=== PATIENT | female | born 1960 | race Caucasian/White ===

== ENCOUNTER 2024-11-04 11:46 | Emergency (ER) | payer BC, SELFPAY ==
[2024-11-04 11:48] VITALS: BMI 31.0
[2024-11-04 11:57] VITALS: BP 163/88; PULSE 107; RESP 18; TEMP 36.9; O2SAT 90
--- NOTE | 2024-11-04 12:05 | XR_ITS ---
Examination: PA lateral chest 2 views Technique: Upright PA lateral chest 2 views Exam date and time: November 04, 2024 1216 hrs. Comparison November 17, 2018 Indications: Coughing fever beginning 2 weeks ago Findings: Suspicious for early bilateral perihilar pneumonia Normal heart size Mild hyperexpansion Impression: Suspicious for early bilateral perihilar pneumonia including mildly prominent hilar regions Recommend 1 month follow-up PA chest to exclude hilar lymphadenopathy
--- NOTE | 2024-11-04 12:08 | PD.EDWEAK ---
ED Weakness RME/HPI General Chief complaint: Weakness Stated complaint: HIGH BLOOD PRESSURE, WEAKNESS, FEELING FAINT Time Seen by Provider: 11/04/24 12:21 Source: patient Arrival date/time: 11/04/24 11:46 63-year-old female with no known medical history presents to the emergency room with a chief complaint of cough, congestion, weakness, shortness of breath, and an elevated high blood pressure reading this morning. Mode of arrival: ambulatory Limitations: no limitations Related Data Home Medications ?Medication ?Instructions ?Recorded ?Confirmed cetirizine 10 mg tablet (Zyrtec) 10 mg PO QDAY 10/24/19 10/24/19 fluticasone propionate 50 2 spray intranasal QDAY 10/24/19 10/24/19 mcg/actuation nasal spray,suspension (Flonase Allergy Relief) Previous Rx's ?Medication ?Instructions ?Recorded albuterol sulfate 90 mcg/actuation 2 inh inhalation Q6H PRN shortness 11/04/24 breath activated powder inhaler of breath or wheezing #1 ea amoxicillin 875 mg-potassium 1 tab PO BID 7 days #14 tabs 11/04/24 clavulanate 125 mg tablet Allergies Allergy/AdvReac Type Severity Reaction Status Date / Time dexlansoprazole (From Allergy Intermediate Chills Verified 11/04/24 11:48 Dexilant) oseltamivir (From Tamiflu) Allergy Intermediate Chills Verified 11/04/24 11:48 Review of Systems Review of Systems Systems Reviewed: All systems reviewed, normal except as documented Constitutional Constitutional: Reports system reviewed and no additional complaints, except as documented, Denies fatigue, Reports fever(s), Reports headache(s) and Reports weakness Eyes Eyes: Reports system reviewed and no additional complaints, except as documented, Denies blurry vision and Denies change in vision ENT Ears, Nose, Mouth, and Throat: Reports system reviewed and no additional complaints, except as documented, Denies otalgia, Reports headache(s), Denies nasal congestion, Denies throat swelling and Denies vertigo Cardiovascular Cardiovascular: Reports system reviewed and no additional complaints, except as documented, Denies chest pain, Denies dyspnea and Denies dyspnea on exertion Respiratory Respiratory: Reports system reviewed and no additional complaints, except as documented, Reports chest congestion, Reports cough, Denies dyspnea, Denies dyspnea on exertion and Reports wheezing Gastrointestinal Gastrointestinal: Reports system reviewed and no additional complaints, except as documented, Denies abdominal pain, Denies cramping, Denies nausea and Denies vomiting Genitourinary Genitourinary: Reports system reviewed and no additional complaints, except as documented Musculoskeletal Musculoskeletal: Reports system reviewed and no additional complaints, except as documented and Denies back pain Integumentary/Breasts Skin/Breast: Reports system reviewed and no additional complaints, except as documented and Denies wounds Neurologic Neurologic: Reports system reviewed and no additional complaints, except as documented, Denies confusion, Reports headache(s), Denies lack of coordination, Denies vertigo and Reports weakness Psychiatric Psychiatric: Reports system reviewed and no additional complaints, except as documented, Denies anxiety, Denies confusion, Denies depression, Denies paranoia, Denies suicidal ideation and Denies tactile hallucinations Endocrine Endocrine: Reports system reviewed and no additional complaints, except as documented and Denies fatigue Hematologic/Lymphatic Hematologic/Lymphatic: Reports system reviewed and no additional complaints, except as documented and Denies lymphadenopathy Allergic/Immunologic Allergic/Immunologic: Reports system reviewed and no additional complaints, except as documented, Denies throat swelling, Denies urticaria and Reports wheezing Past Medical History Social History SMOKING STATUS: Never smoker ED Exam General Limitations: Present no limitations General appearance: Present alert and in no apparent distress Head Head exam: Present atraumatic Eye Eye exam: Present normal appearance, PERRL and EOMI ENT ENT exam: Present normal exam, normal oropharynx and mucous membranes moist Neck Neck exam: Present normal inspection, full ROM and trachea midline Chest Chest inspection: Present normal inspection and symmetric chest wall rise Respiratory Respiratory exam: Present normal lung sounds bilaterally and wheezes; Absent respiratory distress, stridor, accessory muscle use or prolonged expiratory phase Expanded Respiratory Exam Location: Right: wheezes, Upper: wheezes and Lower: wheezes Cardiovascular Cardiovascular exam: Present regular rate, normal rhythm and normal heart sounds; Absent tachycardia Abdominal Exam Abdominal exam: Present soft and normal bowel sounds Extremities Exam Extremities exam: Present normal inspection and full ROM Back Exam Back exam: Present normal inspection and full ROM Neurological Exam Neurological exam: Present alert, oriented X3 and CN II-XII intact Psychiatric Psychiatric exam: Present normal affect and normal mood Skin Skin exam: Present warm, dry, intact and normal color Course Quality Measures none Orders Category Date Time Status Bedside COVID-19 Antigen Test NOW Care 11/04/24 12:05 Active Bedside Influenza A&B Antigen Test NOW Care 11/04/24 12:05 Completed XR chest 2V Stat Exams 11/04/24 12:05 Completed CBC Stat Lab 11/04/24 12:33 Completed CMP [Comprehensive Metabolic Panel] Stat Lab 11/04/24 12:33 Completed Albuterol/Ipratr Rt Aliya [Duoneb Rt Aliya] Med 11/04/24 12:04 Discontinued 6 ml INH X1 ONE Dexamethasone Inj [Decadron Inj] Med 11/04/24 12:04 Discontinued 10 mg PO X1 ONE Vital Signs Vital signs: Vital Signs Temperature 98.4 F 11/04/24 11:57 Pulse Rate 107 H 11/04/24 11:57 Respiratory Rate 18 11/04/24 11:57 Blood Pressure 163/88 H 11/04/24 11:57 Pulse Oximetry (%) 90 L 11/04/24 11:57 Oxygen Delivery Method Room Air 11/04/24 11:57 O2 saturation 96% within normal limits Weakness MDM Narrative MDM Narrative:: 63-year-old female with no known medical history presents to the emergency room with a chief complaint of cough, congestion, weakness, shortness of breath, and an elevated high blood pressure reading this morning. Patient is hemodynamically stable and in no apparent distress. Patient has wheezing to the right upper and lower lobes. Patient is not tachypneic and is afebrile. Patient's O2 saturation is 96% on room air after her breathing treatment and steroids. Chest x-ray was completed and shows early bilateral pneumonia COVID-19 and influenza test were both negative Patient was discharged and educated to follow-up with primary care provider and return to the emergency room for any evidence of worsening signs or symptoms Patient data External records reviewed:: [facility] previous records Clinical information provided by:: patient Social determinants that could affect healthcare access:: none Patient has the following chronic illnesses:: No chronic illness How is presenting disease/condition affected by chronic disease/condition?: no chronic disease Evaluation data The following diagnostics were reviewed and interpreted by me:: lab results and radiology exam(s) Lab and/or radiology exams considered but not ordered:: Labs and radiology exams considered and ordered Interpretation Summary: Chest [id number]: Suspicious for early bilateral perihilar pneumonia Normal heart size Mild hyperexpansion Impression: Suspicious for early bilateral perihilar pneumonia including mildly prominent hilar regions Recommend 1 month follow-up PA chest to exclude hilar lymphadenopathy Medications / Prescriptions Medications or Prescriptions considered but not ordered:: Medication given Medication administrations:: Medication Administration History Discontinued Medications Albuterol/Ipratropium (Albuterol/Ipratropium (Duoneb) Rt Aliya 3 Ml Nebu) 6 ml INH X1 ONE Stop: 11/04/24 12:05 Last Admin: 11/04/24 12:24 Dose: 6 ml Documented By: LO Dexamethasone Sodium Phosphate (Dexamethasone Sod Phos Inj 10 Mg/Ml Vial) 10 mg PO X1 ONE Stop: 11/04/24 12:05 Last Admin: 11/04/24 12:47 Dose: 10 mg Documented By: ER Medication given Consultations Consultation(s) initiated? (list below): No Diagnosis Weakness Differential Diagnosis: other (Community-acquired pneumonia/influenza/COVID-19/upper respiratory infection) Most likely diagnosis given after review of the tests above:: Community-acquired pneumonia Admission Indicated Admission indicated?: not indicated Admission Request Was there a request for admission?: No Disposition Plan Disposition Plan: Discharge Discharge Attestation Discharge Attestation: The patient and all family members were given an opportunity to ask questions and understood the discharge instructions. Discharge instructions specifically effects, indications for sooner follow up or return to the emergency department, and the expected course of current diagnosis. Patient condition: Stable Discharge Plan Plan Patient Disposition: HOME (Self Care) Disposition Comment: Stable Prescriptions/Referrals Prescriptions/Med Rec: New amoxicillin-pot clavulanate 875-125 mg tablet 1 tab PO BID 7 Days Qty: 14 0RF albuterol sulfate 90 mcg/actuation aerosol powdr breath activated 2 inh inhalation Q6H PRN (Reason: shortness of breath or wheezing) Qty: 1 0RF No Action cetirizine [Zyrtec] 10 mg tablet 10 mg PO QDAY fluticasone propionate [Flonase Allergy Relief] 50 mcg/actuation spray,suspension 2 spray INTRANASAL QDAY Problem List Clinical Impression: Community acquired pneumonia Patient/Caregiver Discharge Instructions Education Materials: ED Pneumonia (Adult) Additional Instructions: Please follow-up with your primary care provider in the next 24 to 48 hours. Your chest x-ray showed community-acquired pneumonia. 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 For any evidence of worsening signs or symptoms return to the emergency room immediately Print Language: Romansh Stand Alone Forms: [place] Info., Patient Portal Info Letter PA/HEALTH CARE MANAGER Supervising Physician PA/HEALTH CARE MANAGER Supervising Physician: Dr Salinas
[2024-11-04] MEDS: ALBUTEROL/IPRATROPIUM (Duoneb) RT SOL 3 ML NEBU 6 ML INH (12:24)
[2024-11-04 12:28] VITALS: PULSE 98; RESP 18; O2SAT 98
[2024-11-04] MEDS: DEXAMETHASONE SOD PHOS INJ 10 MG/ML VIAL PO (12:47)
[2024-11-04 12:56] LABS: Basophils # (Auto) 0.1 Thou/mm3 (0.0-0.2); Basophils % (Auto) 1 % (0-2.5); Eosinophils # (Auto) 0.3 Thou/mm3 (0.0-0.5); Eosinophils % (Auto) 3 % (0-10); Hematocrit 44.3 % (36.0-46.0); Hemoglobin 15.5 g/dL (12.0-16.0); Immature Granulocytes % (Auto) 0 % (0-0); Immature Granulocytes Auto 0.04 Thou/mm3 (0.00-0.00); Lymphocytes # (Auto) 2.2 Thou/mm3 (1.0-4.8); Lymphocytes % (Auto) 21 % (10-50); Mean Corpuscular Hemoglobin 29.6 pg (25.0-35.0); Mean Corpuscular Volume 85 fL (80-100); Monocytes # (Auto) 0.7 Thou/mm3 (0.0-0.8); Monocytes % (Auto) 7 % (0-12); Neutrophils # (Auto) 7.1 Thou/mm3 (1.8-7.7); Neutrophils % (Auto) 68 % (37-80); Nucleated Red Blood Cell % 0 /100 WBC (0); Platelet Count 318 Thou/mm3 (140-440); RDW Standard Deviation 38.4 fL (36.4-46.3); Red Blood Count 5.23 Miln/mm3 (4.00-5.20); White Blood Count 10.5 Thou/mm3 (3.6-11.0)
[2024-11-04 13:18] LABS: Alanine Aminotransferase 44 U/L (10-49); Albumin, Serum 4.6 gm/dL (3.4-4.8); Albumin/Globulin Ratio 1.5 (1.2-2.2); Alkaline Phosphatase 140 U/L (46-116); Anion Gap 12 (7-16); Aspartate Amino Transferase 38 U/L (0-34); BUN/Creatinine Ratio 15 Ratio (12-20); Bilirubin,Total 0.3 mg/dL (0.3-1.2); Blood Urea Nitrogen 15 mg/dL (9-23); Calcium 9.5 mg/dL (8.3-10.6); Calcium (Corrected) 9.5 mg/dL (8.5-10.1); Carbon Dioxide 22.8 mMol/L (20.0-31.0); Chloride 107 mMol/L (98-107); Estimated Creatinine Clearance 60.5 mL/min (>60); Glucose 104 mg/dL (74-106); Osmolality,Calculated 283 (275-295); Potassium 3.8 mMol/L (3.4-5.1); Sodium 142 mMol/L (136-145); Total Protein 7.6 gm/dL (5.7-8.2); eGFR > 60 See Note
[2024-11-04 13:39] VITALS: BP 123/82; PULSE 106; RESP 18; TEMP 36.7; O2SAT 96
== END 2024-11-04 13:41 | disposition home or self-care (01) ==
LOC: SERX 14:32
PROVIDERS: Nurse Practitioner Family; Emergency Provider Emergency Medicine
DX: J18.9 Pneumonia, unspecified organism (principal)
CPT/HCPCS: 36415; 71046; 80053; 85025; 87400; 87811; 94640; 99283; A9270; J1100

== ENCOUNTER 2024-12-24 11:13 | Emergency (ER) | payer BC, SELFPAY ==
[2024-12-24 11:14] VITALS: BMI 30.9
[2024-12-24 11:25] VITALS: BP 166/81; PULSE 112; RESP 18; TEMP 36.8; O2SAT 96
--- NOTE | 2024-12-24 11:31 | EKG_ITS ---
[facility] (Formerly [facility])[3] Test Date: 2024-12-24 Pat Name: KRISTIN VILLARREAL Department: Room: - Gender: Female Bait Tier: : 1960 Requested By: Jaylen Lanier Order Number: [id number] Reading MD: Jaylen Lanier Measurements Intervals [place] Rate: 88 P: 52 VA: 145 QRS: 39 QRSD: 85 T: 39 QT: 349 QTc: 424 Interpretive Statements SINUS RHYTHM WITH SINUS ARRHYTHMIA LOW QRS VOLTAGE IN PRECORDIAL LEADS [QRS DEFLECTION < 1.0 mV IN CHEST LEADS] No previous ECG available for comparison /store/[email or web address]/[id number]
--- NOTE | 2024-12-24 11:31 | XR_ITS ---
Examination: PA lateral chest 2 views TECHNIQUE: Upright PA lateral chest 2 views Exam date and time: December 24, 2024 1212 hours Comparison November 04, 2024 INDICATIONS: Chest pain with hypertension today. FINDINGS: Normal heart size Mild hyperexpansion No lobar pneumonia Mild accentuation of basilar bronchovascular markings IMPRESSION: Mild basilar bronchitis pattern
--- NOTE | 2024-12-24 11:32 | EDRME_ITS ---
Rapid Medical Screening Exam E Arrival date/time: 12/24/24 11:13 64-year-old female with no known medical history presents to the emergency room with a chief complaint of chest tightness, palpitations, x 1 month and left- sided arm tingling x 1 day. I have greeted and performed a focused initial assessment of this patient. A comprehensive ED assessment and evaluation of the patient, analysis of all test results, and completion of the medical decision making process will be conducted by additional ED providers. Chief Complaint: General Adult/Misc Complain Vital signs: Vital Signs Temperature 98.3 F 12/24/24 11:25 Pulse Rate 112 H 12/24/24 11:25 Respiratory Rate 18 12/24/24 11:25 Blood Pressure 166/81 H 12/24/24 11:25 Pulse Oximetry (%) 96 12/24/24 11:25 Oxygen Delivery Method Room Air 12/24/24 11:25 Vital signs reviewed by provider: Yes
[2024-12-24 12:08] LABS: Basophils # (Auto) 0.1 Thou/mm3 (0.0-0.2); Basophils % (Auto) 1 % (0-2.5); Eosinophils # (Auto) 0.2 Thou/mm3 (0.0-0.5); Eosinophils % (Auto) 2 % (0-10); Hematocrit 43.6 % (36.0-46.0); Hemoglobin 14.9 g/dL (12.0-16.0); Immature Granulocytes % (Auto) 0 % (0-0); Immature Granulocytes Auto 0.03 Thou/mm3 (0.00-0.00); Lymphocytes # (Auto) 2.1 Thou/mm3 (1.0-4.8); Lymphocytes % (Auto) 23 % (10-50); Mean Corpuscular HGB Conc 34.2 g/dl (31.0-37.0); Mean Corpuscular Hemoglobin 29.5 pg (25.0-35.0); Mean Corpuscular Volume 86 fL (80-100); Monocytes # (Auto) 0.6 Thou/mm3 (0.0-0.8); Monocytes % (Auto) 6 % (0-12); Neutrophils # (Auto) 6.1 Thou/mm3 (1.8-7.7); Neutrophils % (Auto) 68 % (37-80); Nucleated Red Blood Cell % 0 /100 WBC (0); Platelet Count 291 Thou/mm3 (140-440); RDW Standard Deviation 39.5 fL (36.4-46.3); Red Blood Count 5.05 Miln/mm3 (4.00-5.20)
[2024-12-24 12:24] LABS: Partial Thromboplastin Time 28.4 Seconds (22.0-36.0); Prothrombin Time 11.1 Seconds (9.0-12.2)
[2024-12-24 12:25] LABS: B-Type Natriuretic Peptide 27 pg/mL (0-100)
[2024-12-24 12:30] LABS: Alanine Aminotransferase 34 U/L (10-49); Albumin, Serum 4.4 gm/dL (3.4-4.8); Albumin/Globulin Ratio 1.5 (1.2-2.2); Alkaline Phosphatase 121 U/L (46-116); Anion Gap 10 (7-16); Aspartate Amino Transferase 33 U/L (0-34); BUN/Creatinine Ratio 12 Ratio (12-20); Bilirubin,Total 0.6 mg/dL (0.3-1.2); Blood Urea Nitrogen 12 mg/dL (9-23); Calcium 9.4 mg/dL (8.3-10.6); Calcium (Corrected) 9.4 mg/dL (8.5-10.1); Chloride 107 mMol/L (98-107); Estimated Creatinine Clearance 59.5 mL/min (>60); Glucose 111 mg/dL (74-106); Osmolality,Calculated 281 (275-295); Potassium 4.1 mMol/L (3.4-5.1); Sodium 141 mMol/L (136-145); Total Protein 7.4 gm/dL (5.7-8.2); Troponin I < 0.002 ng/mL (0.0-0.045); eGFR > 60 See Note
--- NOTE | 2024-12-24 12:37 | EDNOTE_ITS ---
ED General RME/HPI General Chief complaint: General Adult/Misc Complain Stated complaint: HTN, LOPEZ, TINGELING TO L HAND Time Seen by Provider: 12/24/24 12:32 Arrival date/time: 12/24/24 11:13 CC: Shortness of breath lightheadedness weakness HPI ongoing for the past 6 months with progressive increase in symptoms. The patient states she has spontaneous episodes of shortness of breath of the last approximately 2 hours and spontaneously resolved but persistently over the past 2 to 3 months the patient has had exertional dyspnea walking approximately 20 yards and then she becomes dyspneic and has palpitations. Patient denies any chest pain, shortness of breath has had no swelling in her lower extremities denies cough fever chills. [place] and states that his exertional dyspnea episodes occur both at sea level as well as an elevation of where she lives. RME / HPI RME / HPI narrative: 12/24/24 11:13 64-year-old female with no known medical history presents to the emergency room with a chief complaint of chest tightness, palpitations, x 1 month and left- sided arm tingling x 1 day. I have greeted and performed a focused initial assessment of this patient. A comprehensive ED assessment and evaluation of the patient, analysis of all test results, and completion of the medical decision making process will be conducted by additional ED providers. Related Data Home Medications ?Medication ?Instructions ?Recorded ?Confirmed cetirizine 10 mg tablet (Zyrtec) 10 mg PO QDAY 10/24/ 0 10/24/19 fluticasone propionate 50 2 spray intranasal QDAY 02/0510/24/19 mcg/actuation nasal spray,suspension (Flonase Allergy Relief) Previous Rx's ?Medication ?Instructions ?Recorded albuterol sulfate 90 mcg/actuation 2 inh inhalation Q6 H PRN shortness 11/04/24 breath activated powder inhaler of breath or wheezing #1 ea Allergies Allergy/AdvReac Type Severity Reaction Status Date / Time dexlansoprazole (From Allergy Intermediate Chills Verified 11/04/24 11:48 Dexilant) oseltamivir (From Tamiflu) Allergy Intermediate Chills Verified 11/04/24 11:48 Review of Systems Review of Systems Narrative Review of Systems: GEN: No fever, no chills, no weight loss EYES: No discharge, no visual changes, no pain HEENT: No ear pain, no congestion, no sore throat PULM: + shortness of breath, no cough, no congestion CV: No chest pain, no dyspnea on exertion, no palpitations GI: No nausea, no vomiting, no diarrhea, no pain, no constipation : No frequency, no urgency, no dysuria MUSC/SKEL: No joint pain, no back pain SKIN: No rash PSYCH: No hallucinations, no depression HEME/LYMPH: No easy bleeding or bruising tendencies NEURO: No weakness, no headache Past Medical History Social History SMOKING STATUS: Never smoker ED Exam Narrative Physical exam: [General: While seated not in any acute distress Head normocephalic HEENT: Within acceptable limits Neck is supple nontender Chest equal chest rise nontender to palpation Respiratory: Clear to auscultation no wheezes crackles or rubs CV: Rate rhythm is regular no murmurs rubs or clicks Abdomen is soft nontender no masses positive bowel sounds all 4 quadrants Back: No CVA tenderness no spinous process tenderness from cervical spine thoracic and lumbar spine Skin: Intact no petechiae rash induration ulceration or crepitus Extremities: Moving all extremity against resistance cap refill less than 2 seconds neurosensory intact Neuro: Awake alert oriented x3 Glascow coma 15 no focal deficits] Course Course Course Narrative: Patient was ambulated approximately 20 yards, at which time the patient became tachycardic with very mild tachypnea no pursed lip breathing but heart rate went to 100s and once the patient was seated immediately returned back to the 80s range. Quality Measures none Orders Category Date Time Status CT Screening NOW Care 12/24/24 13:55 Active EKG (ED ONLY) *Do not use* NOW Care 12/24/24 11:31 Completed Saline [Insert IV] NOW Care 12/24/24 13:[address] angio chest Stat Exams 12/24/24 13:55 Completed EKG (ED Only) Stat Exams 12/24/24 11:31 Draft XR chest 2V Stat Exams 12/24/24 11:31 Completed B-Type Natriuretic Peptide Stat Lab 12/24/24 11:54 Completed CBC Stat Lab 12/24/24 11:54 Completed Comprehensive Metabolic Panel Stat Lab 12/24/24 11:54 Completed D-Dimer Stat Lab 12/24/24 12:54 Completed Magnesium Stat Lab 12/24/24 11:54 Completed Partial Thromboplastin Time Stat Lab 12/24/24 11:54 Completed Prothrombin Time with INR Stat Lab 12/24/24 11:54 Completed Troponin I Stat Lab 12/24/24 11:54 Completed Urinalysis Stat Lab 12/24/24 12:33 Completed Vital Signs Vital signs: Vital Signs Temperature 98.3 F 12/24/24 11:25 Pulse Rate 112 H 12/24/24 11:25 Respiratory Rate 18 12/24/24 11:25 Blood Pressure 166/81 H 12/24/24 11:25 Pulse Oximetry (%) 96 12/24/24 11:25 Oxygen Delivery Method Room Air 12/24/24 11:25 [facility] Patient data External records reviewed:: [facility] previous records Clinical information provided by:: patient Social determinants that could affect healthcare access:: none Patient has the following chronic illnesses:: Chronic sinusitis How is presenting disease/condition affected by chronic disease/condition?: u neffected by Evaluation data The following diagnostics were reviewed and interpreted by me:: lab results, radiology exam(s) and EKG tracing(s) Lab and/or radiology exams considered but not ordered:: EKG performed at 1139 shows a ventricular rate of 88 AR interval 145 QRS of 8 5 QTc of 395 this is sinus rhythm. When compared to an old EKG of November 2018 there are no significant changes. CBC shows no acute leukocytosis anemia thrombocytopenia Coags within acceptable limits CMP shows no significant electrolyte imbalances renal impairment transaminitis or T. bili elevation Troponin is negative BNP is negative Chest x-ray as interpreted by me shows no acute or gross abnormality that requires emergent or immediate intervention. CTA of the chest is negative for any acute finding, Discussed this with Dr. Palomino who agrees patient will do an outpatient follow- up with cardiology for stress test. Patient is advised if there is worsening of symptoms return the emergency room for reevaluation. Interpretation Summary: Laboratory results including D-dimer are completely negative for any acute finding. I spoke with Dr. Palomino the patient's PCP and after lengthy discussion discussing all the patient's symptoms laboratory findings diagnostic imaging she is requesting the patient get a CTA of the chest to rule out any sinister issue that was missed on chest x-ray. I discussed this with the patient as we do not have CT available in the house, and she is agreed to wait for CT and its results knowing that this may be hours . Medications Medications considered but not ordered:: None Medication administrations:: None Consultations Consultation(s) initiated? (list below): No Diagnosis Differential Diagnosis ED Complaint MDM: ACS FL pneumonia Most likely diagnosis given after review of the tests above:: Shortness of breath Admission Indicated Admission indicated?: not indicated Explain why admission is indicated or not indicated:: Stable for discharge Admission Request Was there a request for admission?: No Disposition Plan Disposition Plan: Discharge Discharge Attestation Discharge Attestation: The patient and all family members were given an opportunity to ask questions and understood the discharge instructions. Discharge instructions specifically effects, indications for sooner follow up or return to the emergency department, and the expected course of current diagnosis. Patient condition: Stable Medical Decision Making Differential Diagnosis Differential Diagnosis: ACS FL pneumonia Lab Data 12/24/24 11:54 12/24/24 11:54 Labs: Lab Results 12/24/24 12/24/24 12/24/24 Range/Units 11:54 12:33 12:54 WBC 9.0 (3.6-11.0) Thou/mm3 RBC 5.05 (4.00-5.20) Miln/mm3 Hgb 14.9 (12.0-16.0) g/dL Hct 43.6 (36.0-46.0) % MCV 86 (80-100) fL MCH 29.5 (25.0-35.0) pg MCHC 34.2 (31.0-37.0) g/dl RDW Std Deviation 39.5 (36.4-46.3) fL Plt Count 291 (140-440) Thou/mm3 Neut % (Auto) 68 (37-80) % Lymph % (Auto) 23 (10-50) % [place] % (Auto) 6 (0-12) % Eos % (Auto) 2 (0-10) % Baso % (Auto) 1 (0-2.5) % Neut # (Auto) 6.1 (1.8-7.7) Thou/mm3 Lymph # (Auto) 2.1 (1.0-4.8) Thou/mm3 [place] # (Auto) 0.6 (0.0-0.8) Thou/mm3 Eos # (Auto) 0.2 (0.0-0.5) Thou/mm3 Baso # (Auto) 0.1 (0.0-0.2) Thou/mm3 Immature Gran # (Auto) 0.03 H (0.00-0.00) Thou/mm3 Absolute Nucleated RBC 0.00 (0.00-0.00) Thou/mm3 Immature Gran % 0 (0-0) % Nucleated RBC % 0 (0) /100 WBC PT 11.1 (9.0-12.2) Seconds INR 1.0 (0.9-1.3) APTT 28.4 (22.0-36.0) Seconds D-Dimer < 250 (<600) ng/mL Sodium 141 (136-145) mMol/L Potassium 4.1 (3.4-5.1) mMol/L Chloride 107 (98-107) mMol/L Carbon Dioxide 24.0 (20.0-31.0) mMol/L Anion Gap 10 (7-16) BUN 12 (9-23) mg/dL Creatinine 1.0 (0.6-1.3) mg/dL Estim Creat Clear Calc 59.5 L (>60) mL/min eGFR > 60 (60 - ) See Note BUN/Creatinine Ratio 12 (12-20) Ratio Glucose 111 H (74-106) mg/dL Calculated Osmolality 281 (275-295) Calcium 9.4 (8.3-10.6) mg/dL Corrected Calcium 9.4 (8.5-10.1) mg/dL Magnesium 2.0 (1.6-2.6) mg/dL Total Bilirubin 0.6 (0.3-1.2) mg/dL AST 33 (0-34) U/L ALT 34 (10-49) U/L Alkaline Phosphatase 121 H (46-116) U/L Troponin I < 0.002 (0.0-0.045) ng/mL B-Natriuretic Peptide 27 (0-100) pg/mL Total Protein 7.4 (5.7-8.2) gm/dL Albumin 4.4 (3.4-4.8) gm/dL Globulin 3.0 (2.3-3.5) gm/dL Albumin/Globulin Ratio 1.5 (1.2-2.2) Ur Collection Type Clean Catch Urine Color Yellow (Lt Yel-Yel) Urine Clarity Clear (Clear/Hazy) Urine pH 6.0 (5.0-7.0) Ur Specific [place] 1.025 (1.001-1.035) Urine Protein 1+ A (Neg - Trace) Urine Glucose (UA) Negative (Negative) Urine Ketones Negative (Negative) Urine Blood 1+ A (Negative) Urine Nitrite Negative (Negative) Urine Bilirubin Negative (Negative) Urine Urobilinogen (Auto) Negative (0.0-1.0) mg/dL Ur Leukocyte Esterase Negative (Negative) Urine RBC 10 H (0-3) /hpf Urine WBC 3 (0-5) /hpf Ur Squamous Epith Cells 3 (0-5) /hpf Urine Bacteria None (None) Discharge Plan Plan Patient Disposition: HOME (Self Care) Patient condition on transfer: Stable Prescriptions/Referrals Prescriptions/Med Rec: No Action cetirizine [Zyrtec] 10 mg tablet 10 mg PO QDAY fluticasone propionate [Flonase Allergy Relief] 50 mcg/actuation spray,suspension 2 spray INTRANASAL QDAY albuterol sulfate 90 mcg/actuation aerosol powdr breath activated 2 inh inhalation Q6H PRN (Reason: shortness of breath or wheezing) Qty: 1 0RF Referrals: Ricardo Palomino MD [Primary Care Provider] - In 1 week Problem List Clinical Impression: Shortness of breath Patient/Caregiver Discharge Instructions Education Materials: ED Shortness of Breath (Dyspnea) Print Language: Romanian Stand Alone Forms: [place] Info., Work/School Release, Patient Portal Info Letter PA/MAKING DEPARTMENT PREPARER Supervising Physician PA/MAKING DEPARTMENT PREPARER Supervising Physician: Lee Brock ENP
[2024-12-24 12:39] LABS: Collection Type, Urine Clean Catch
[2024-12-24 12:44] VITALS: BP 150/84; PULSE 84; RESP 16; TEMP 36.7; O2SAT 96
[2024-12-24 12:47] LABS: Bilirubin,Urine Negative (Negative); Blood,Urine 1+ (Negative); Clarity,Urine Clear (Clear/Hazy); Color,Urine Yellow (Lt Yel-Yel); Glucose, Urine Negative (Negative); Ketones,Urine Negative (Negative); Leukocyte Esterase,Urine Negative (Negative); Nitrite,Urine Negative (Negative); Protein,Urine 1+ (Neg - Trace); RBC,Urine 10 /hpf (0-3); Specific Gravity,Urine 1.025 (1.001-1.035); Squamous Epithelial Cell,Urine 3 /hpf (0-5); Urobilinogen,Urine Negative mg/dL (0.0-1.0); WBC,Urine 3 /hpf (0-5)
[2024-12-24 13:22] LABS: D-Dimer < 250 ng/mL (<600)
--- NOTE | 2024-12-24 13:55 | XR_ITS ---
Examination: CTA chest with intravenous contrast 2-D reconstructions 3-D reconstructions, vascular Date and time of exam: December 24, 2024 1736 hrs. Indications: Shortness of breath chest pain today CTDI: vol (mGy) 13.5 DLP: (mGycm) 363 Technique: Multiple axial sections of the thorax have been obtained. 3 mm slice thickness, from below the hemidiaphragms to above the apices of the lungs. Mediastinal and lung density settings have been obtained. 2-D sagittal and coronal reconstructions. 3-D angiographic renderings, 3-D volume renderings, 3D post processing, vascular maximum intensity projections obtained. Contrast administered is 100 cc [id number] Low dose protocols were performed. One or more of the following dose reduction techniques were used; automated exposure control, adjustment of the mA and/or KV according to patient size, use of iterative reconstruction technique. Findings: No thoracic aortic aneurysm dilatation or dissection No pulmonary artery filling defects No mediastinal lymphadenopathy Minor atelectasis left base Fatty infiltration throughout the liver No gallstones No pancreatic or adrenal mass Moderate osteopenia. Impression: Negative for pulmonary artery emboli No pneumonia, pulmonary edema, or pleural disease
[2024-12-24 14:56] VITALS: BP 133/77; PULSE 77; RESP 18; TEMP 36.4; O2SAT 97
[2024-12-24 15:11] VITALS: BP 135/75; PULSE 75; RESP 17; TEMP 36.6; O2SAT 97
[2024-12-24 16:10] VITALS: BP 124/68; PULSE 63; RESP 18; TEMP 36.6; O2SAT 98
[2024-12-24 18:43] VITALS: BP 148/67; PULSE 76; RESP 16; TEMP 36.6; O2SAT 98
== END 2024-12-24 19:00 | disposition home or self-care (01) ==
PROVIDERS: Nurse Practitioner Family; Registered Nurse General Practice; Emergency Provider Emergency Medicine; PCP Internal Medicine
DX: R06.02 Shortness of breath (principal); R00.2 Palpitations; R07.89 Other chest pain; R20.2 Paresthesia of skin
CPT/HCPCS: 36415; 71046; 71275; 80053; 81001; 83735; 83880; 84484; 85025; 85379; 85610; 85730; 93005; 99285; A4649; Q9967

== ENCOUNTER → 2025-03-13 | Outpatient (CLI) | payer BC, SELFPAY ==
[2025-03-13 15:04] LABS: Misc Send Out* See Sep Rpt
[2025-03-21 23:35] LABS: Immunoglobulin A 312 mg/dL (70-320); Immunoglobulin G 1028 mg/dL (600-1540); Immunoglobulin G Subclass 1 527 mg/dL (382-929); Immunoglobulin G Subclass 2 299 mg/dL (241-700); Immunoglobulin G Subclass 3 52 mg/dL (22-178); Immunoglobulin G Subclass 4 60.8 mg/dL (4-86)
[2025-03-25 06:41] LABS: Immunoglobulin G Total 944 mg/dL (600-1540); Immunoglobulin M 91 mg/dL (50-300)
== END | disposition home or self-care (01) ==
LOC: COPL 14:35
PROVIDERS: PCP Internal Medicine; Referring Provider Physician Assistant; Visit Provider Physician Assistant
DX: J31.0 Chronic rhinitis (principal)
CPT/HCPCS: 36415; 82784; 82787; 86609; 86684

== ENCOUNTER → 2025-07-11 | Outpatient (CLI) | payer BC, SELFPAY ==
[2025-07-11 10:38] LABS: Alanine Aminotransferase 27 U/L (10-49); Albumin, Serum 4.7 gm/dL (3.4-4.8); Albumin/Globulin Ratio 2.0 (1.2-2.2); Alkaline Phosphatase 104 U/L (46-116); Anion Gap 13 (7-16); Aspartate Amino Transferase 23 U/L (0-34); BUN/Creatinine Ratio 11 Ratio (12-20); Bilirubin,Total 0.6 mg/dL (0.3-1.2); Blood Urea Nitrogen 11 mg/dL (9-23); Calcium 8.8 mg/dL (8.3-10.6); Calcium (Corrected) 8.8 mg/dL (8.5-10.1); Carbon Dioxide 24.5 mMol/L (20.0-31.0); Cardiac Risk Estimate 4.0 RATIO (3.7-5.6); Chloride 110 mMol/L (98-107); Cholesterol 226 mg/dL (132-200); Creatinine (Component) 1.0 mg/dL (0.6-1.3); Globulin 2.3 gm/dL (2.3-3.5); Glucose 99 mg/dL (74-106); HDL Cholesterol 57 mg/dL (40-60); LDL Cholesterol,Calculated 151 mg/dL (0-130); Osmolality,Calculated 291 (275-295); Potassium 4.0 mMol/L (3.4-5.1); Sodium 147 mMol/L (136-145); Total Protein 7.0 gm/dL (5.7-8.2); Triglycerides 90 mg/dL (30-150); eGFR > 60 See Note
== END | disposition home or self-care (01) ==
LOC: COPL 09:38
PROVIDERS: PCP Internal Medicine; Referring Provider Internal Medicine; Visit Provider Internal Medicine
DX: E78.5 Hyperlipidemia, unspecified (principal)
CPT/HCPCS: 36415; 80053; 80061